=== PATIENT | female | born 1980 | race Hispanic/Latino ===

== ENCOUNTER 2020-02-14 18:24 | Emergency (ER) | payer BC, OTHER ==
[2020-02-15 18:18] LABS: SARS-CoV-2 MS2 Positive; SARS-CoV-2 N Gene Negative; SARS-CoV-2 S Gene Negative; SARS-CoV-2 by NAA Not Detected (NotDetected); SARS-CoV-2 orf1ab Negative
== END 2020-02-14 18:57 | disposition home or self-care (01) ==
LOC: ERS 18:24
DX: Z20.828 Contact with and (suspected) exposure to other viral communicable diseases (principal); M32.9 Systemic lupus erythematosus, unspecified; M06.9 Rheumatoid arthritis, unspecified
CPT/HCPCS: 87635; 99283; U0003

== ENCOUNTER 2023-05-29 19:31 | Emergency (ER) | payer SELFPAY ==
[2023-05-29] MEDS ORDERED: Ketorolac Tromethamine 30 MG/ML VIAL ONE (22:30)
[2023-05-29] MEDS ORDERED: predniSONE 20 MG TAB ONE (22:30)
== END 2023-05-29 22:33 | disposition home or self-care (01) ==
LOC: ERS 19:31
DX: S20.20XA Contusion of thorax, unspecified, initial encounter (principal); V49.9XXA Car occupant (driver) (passenger) injured in unspecified traffic accident, initial encounter
CPT/HCPCS: 96372; 99283; J1885; J7512

== ENCOUNTER 2023-08-10 08:10 | Emergency (ER) | payer OTHER, SELFPAY ==
[2023-08-10] MEDS ORDERED: Ketorolac Tromethamine 30 MG (1 mL) VIAL ONE (08:38)
== END 2023-08-10 09:00 | disposition home or self-care (01) ==
LOC: ERS 08:10
DX: M54.50 Low back pain, unspecified (principal)
CPT/HCPCS: 96372; 99283; J1885

== ENCOUNTER 2024-03-10 14:03 | Emergency (ER) | payer OTHER ==
[2024-03-10] MEDS ORDERED: Ibuprofen 200 MG TAB ONE (15:03)
== END 2024-03-10 16:45 | disposition home or self-care (01) ==
LOC: ERS 14:03
DX: S93.401A Sprain of unspecified ligament of right ankle, initial encounter (principal); X50.0XXA Overexertion from strenuous movement or load, initial encounter
CPT/HCPCS: 99283